=== PATIENT | female | born 1950 | race Hispanic/Latino ===

== ENCOUNTER 2024-01-09 01:10 | Day surgery (SDC) | payer OTHER, SELFPAY ==
[2023-12-26 08:42] VITALS: BMI 27.7
--- NOTE | 2024-01-05 13:56 | SUR.PREOP ---
Patient called regarding upcoming procedure. Reviewed preop instructions, appointment times, and procedure prep.
[2024-01-09 11:05] VITALS: BP 164/80; PULSE 66; RESP 18; TEMP 36.4; O2SAT 100; BMI 27.6
[2024-01-09] MEDS: LACTATED RINGERS 1,000 ML 150 ML IV CONT (11:34)
[2024-01-09 11:35] LABS: Glucose Point of Care 129 mg/dl (65-105)
--- NOTE | 2024-01-09 11:35 | P.PNAN_ITS ---
Anes - Initial Pre Proc Eval Procedure: Operation Date: 01/09/24 11:30 Proposed Procedures p Colonoscopy - Bhupinder He MD Date/Time: 01/09/24 11:35 Surgeon: Bhupinder He MD Pre Op Diagnosis: Personal history of colon polyps Patient Data Age: 73 Gender: F Height: 1.63 m Weight: 73.1 kg Last Vital Signs Temp 97.6 F 01/09/24 11:05 Pulse 66 01/09/24 11:05 Resp 18 01/09/24 11:05 BP 164/80 H 01/09/24 11:05 Pulse Ox 100 01/09/24 11:05 O2 Del Method Room Air 01/09/24 11:05 Allergies Allergy/AdvReac Type Severity Reaction Status Date / Time prednisone Allergy Intermediate HIVES Verified 01/09/24 11:16 tramadol Allergy Intermediate DIZZINIESS,RACING Verified 01/09/24 11:16 HEART,NAUSEA Home Medications Medication Instructions Recorded Confirmed Type esomeprazole magnesium 20 mg 20 mg PO DAILY 12/26/23 01/09/24 History capsule,delayed release (Nexium 24HR) glipizide 10 mg tablet 10 mg PO BIDWM 12/26/23 01/09/24 History latanoprost 0.005 % eye drops 1 drp EACH EYE HS 12/26/23 01/09/24 History lisinopril 10 mg tablet 10 mg PO HS 12/26/23 01/09/24 History mecobalamin (vitamin B12) 1,000 1,000 mcg PO DAILY 12/26/23 01/09/24 History mcg chewable tablet metformin 500 mg tablet 500 mg PO BIDWM 12/26/23 01/09/24 History timolol maleate 0.5 % eye drops 1 drp EACH EYE BID 12/26/23 01/09/24 History Patient hx anesthesia problems: none Family hx anesthesia problems: none Results Review: All pre-operative results and documents have been reviewed as part of the pre- operative evaluation. [facility] Social History Social History Smoking status: Never smoker Alcohol intake: current Substance use: never Substance use type: does not use Living arrangements: with family Spiritual care concerns: No Anes - Eval Final PreProcedure Day of Procedure 01/09/24 11:35 Patient weight: normal Heart: regular rate and rhythm Lungs: clear to auscultation Airway: Mallampati scale class II Neurological: alert and oriented Last oral intake: >/= 8 hours ASA classification: III Emergent: no Anesthetic plan: proceed Anesthesia type and monitoring: general GIVS and standard monitoring Results Review: All pre-operative results and documents have been reviewed as part of the pre- operative evaluation. Informed Consent: The patient's anesthetic plan and its attendant risks and benefits were discussed with the patient/family/POA. Questions were solicited and answers provided to the satisfaction of the patient/family/POA.
--- NOTE | 2024-01-09 11:49 | PM.HPGS ---
History of Present Illness History of Present Illness Consent: Risks, benefits, and alternatives have been discussed and questions answered. Patient agrees to proceed with procedure. Chief complaint: Personal history of colon polyps Narrative: Ira Garcia is a 73 year old female with colon polyp 5 years ago, also episode of diverticulitis with llq pain Review of Systems Constitutional: Constitutional: Denies headache(s) and Denies weakness Eyes: Eyes: Denies blurry vision ENT: Reports Normal hearing present, Denies headache(s) and Denies neck pain Cardiovascular: Cardiovascular: Denies chest pain and Denies dyspnea Respiratory: Respiratory: Denies dyspnea Gastrointestinal: Gastrointestinal: Reports no additional gastrointestinal complaints Genitourinary: Genitourinary: Denies dysuria Musculoskeletal: Musculoskeletal: Denies neck pain Integumentary/Breasts: Skin/Breast: Denies dry skin Neurologic: Reports Normal hearing present, Denies headache(s) and Denies weakness Psychiatric: Psychiatric: Denies anxiety Endocrine: Endocrine: Denies change in body appearance Hematologic/Lymphatic: Hematologic/Lymphatic: Denies easy bleeding Allergic/Immunologic: Allergic/Immunologic: Denies urticaria PMFSH Past Medical History Medical History (Updated 01/09/24 @ 11:50 by Bhupinder He MD) Colon polyp History of diverticulitis of colon Social History Social History Smoking status: Never smoker Alcohol intake: current Substance use: never Substance use type: does not use Living arrangements: with family Spiritual care concerns: No Meds Home Medications and Allergies Home Medications Medication Instructions Recorded Confirmed Type esomeprazole magnesium 20 mg 20 mg PO DAILY 12/26/23 01/09/24 History capsule,delayed release (Nexium 24HR) glipizide 10 mg tablet 10 mg PO BIDWM 12/26/23 01/09/24 History latanoprost 0.005 % eye drops 1 drp EACH EYE HS 12/26/23 01/09/24 History lisinopril 10 mg tablet 10 mg PO HS 12/26/23 01/09/24 History mecobalamin (vitamin B12) 1,000 1,000 mcg PO DAILY 12/26/23 01/09/24 History mcg chewable tablet metformin 500 mg tablet 500 mg PO BIDWM 12/26/23 01/09/24 History timolol maleate 0.5 % eye drops 1 drp EACH EYE BID 12/26/23 01/09/24 History Allergies Allergy/AdvReac Type Severity Reaction Status Date / Time prednisone Allergy Intermediate HIVES Verified 01/09/24 11:16 tramadol Allergy Intermediate DIZZINIESS,RACING Verified 01/09/24 11:16 HEART,NAUSEA Vital Signs Vital Signs - 24 hr 01/09/24 11:05 Temperature 97.6 F Pulse Rate 66 Respiratory Rate 18 Blood Pressure 164/80 H Pulse Oximetry 100 Oxygen Delivery Room Air Exam Const: General: comfortable and no acute distress HENMT: Face/Nose/Sinus: Normal nares present Eyes: General: appearance normal, both eyes and all related structures Neck: Neck: no JVD Resp: Auscultation: clear to auscultation bilaterally Cardio: Rate: regular rate Rhythm: regular rhythm GI: Inspection: non-distended GI Palp: Yes Soft to palpation Other: mild pain in llq Skin: General skin exam: normal color Neuro: General: gait normal Speech: normal speech Extrem: General: normal to inspection Psych: Mental Status: mental status grossly normal Assessment and Plan Assessment and plan (1) History of diverticulitis of colon: Code(s): Z87.19 - Personal history of other diseases of the digestive system Status: Acute Assessment and Plan: colonoscopy (2) Colon polyp: Code(s): K63.5 - Polyp of colon Status: Acute
[2024-01-09 12:15] VITALS: BP 118/57; PULSE 72; RESP 19; O2SAT 100
[2024-01-09 12:34] VITALS: BP 126/59; PULSE 74; RESP 14; O2SAT 100
[2024-01-09 12:44] VITALS: BP 144/93; PULSE 74; RESP 18; O2SAT 100
== END 2024-01-09 12:51 | disposition home or self-care (01) ==
PROVIDERS: PCP Family Medicine; Visit Provider Internal Medicine Gastroenterology
PROC: 0DJD8ZZ Inspection of Lower Intestinal Tract, Via Natural or Artificial Opening Endoscopic (ICD-10-PCS; CPT 45378; principal; 2024-01-09 11:30)
DX: Z09 Encounter for follow-up examination after completed treatment for conditions other than malignant neoplasm (principal); D12.3 Benign neoplasm of transverse colon; K57.30 Diverticulosis of large intestine without perforation or abscess without bleeding; K64.8 Other hemorrhoids; Z87.19 Personal history of other diseases of the digestive system; Z79.84 Long term (current) use of oral hypoglycemic drugs
CPT/HCPCS: 45385; 82948; 88305; J2704; J7120